=== PATIENT | male | born 1950 | race Caucasian/White ===

== ENCOUNTER 2020-12-07 19:46 | Emergency (ER) | payer MEDICARE ==
[~2020-12-07] VITALS: Ht 182.9 cm; Wt 118.6 kg
[2020-12-07 20:08] VITALS: TEMP 98.3
[2020-12-07 21:34] LABS: BASO # 0.1 (0.0-0.2); BASO % 0.4 % (0.0-2.0); EOS % 0.2 % (0-4.0); GRAN # 13.5 (1.4-6.5); GRAN % 88.9 % (42.2-75.2); HEMATOCRIT 42.1 % (42.0-52.0); HEMOGLOBIN 13.9 g/dl (13.5-18.0); LYMPH % 6.3 % (20.0-51.0); MEAN CELL VOLUME 84 fl (80.0-100.0); MEAN CORPUSCULAR HEMOGLOBIN 28 pg (27.0-31.0); MEAN CORPUSCULAR HGB CONC 33 g/dl (33.0-37.0); MEAN PLATELET VOLUME 10.3 fl (7.4-10.4); MONO # 0.6 (0.1-0.6); MONO % 3.8 % (1.7-9.3); PLATELET COUNT 379 K/mm3 (130-400); RED BLOOD COUNT 5.03 M/mm3 (4.20-5.60)
[2020-12-07 21:40] LABS: ALBUMIN 4.4 gm/dL (3.5-5.0); BILIRUBIN,TOTAL 0.4 mg/dL (0.0-1.0); CALCIUM 9.6 mg/dL (8.4-10.2); CREATININE, serum 0.62 (0.66-1.25); POTASSIUM 3.3 mmol/L (3.4-5.0)
[2020-12-07] MEDS ORDERED: NORCO 325 MG-51 TAB PO (23:06)
[2020-12-07] MEDS ORDERED: ZOFRAN ODT4 MG PO (23:15)
[2020-12-07 23:32] VITALS: BP 167/80; PULSE 80
== END 2020-12-07 23:40 | disposition home or self-care (01) ==
LOC: COL.ER 19:46
PROVIDERS: Personal Emergency Response Attendant
DX: R51.9 Headache, unspecified (principal); R19.7 Diarrhea, unspecified; R11.2 Nausea with vomiting, unspecified; I10 Essential (primary) hypertension
CPT/HCPCS: J2270; J2405; J7030